=== PATIENT | female | born 1970 | race Caucasian/White ===

== ENCOUNTER → 2024-04-27 | Outpatient (CLI) | payer MEDICAID, SELFPAY ==
--- NOTE | 2024-04-27 11:00 | XR_ITS ---
Examination: Breast ultrasound, unilateral, left complete Date and time of exam: April 27, 2020 4:11 AM INDICATIONS: Mammogram October 27, 2023 6 mm circumscribed mass upper outer left breast, left breast sonogram October 27, 2023 3:00 cyst 7:00 cyst Technique: Real-time rhodes scale ultrasonographic imaging performed left breast including all 4 quadrants as well as nipple retroareolar and axillary region. Findings: 2:00 cyst 4 x 5 mm 7:00 cyst 5 x 5 mm Retroareolar cysts 3 x 2 mm, 4 x 4 millimeter No solid nodules IMPRESSION: BI-RADS Category 2: Benign findings
--- NOTE | 2024-04-27 11:30 | XR_ITS ---
Examination: Diagnostic digital mammography, unilateral, left Computer aided detection 3-D breast Tomosynthesis, unilateral Date and time of exam: April 27, 2024 1114 hours INDICATIONS: Mammogram October 17, 2023 4 mm oval mass upper outer left breast Technique: Nonmagnified MLO, CC views of the left breast have been obtained, reconstructed from 3-D Tomosynthesis images. R2 computer aided detection program utilized for evaluation of suspicious masses and/or abnormal calcifications. 3-D Tomosynthesis images obtained. Findings: Scattered areas of fibroglandular density Benign calcifications Stable 4 mm circumscribed nodule outer left breast Impression: BI-RADS category 2: Benign findings Return to yearly follow-up mammography
== END | disposition home or self-care (01) ==
LOC: CDIM 10:45
PROVIDERS: PCP Family Medicine; Referring Provider Specialist; Visit Provider Specialist
DX: R92.322 Mammographic fibroglandular density, left breast (principal); R92.1 Mammographic calcification found on diagnostic imaging of breast
CPT/HCPCS: 76641; 77061; 77065; G0279

== ENCOUNTER → 2024-09-12 | Outpatient (CLI) | payer MEDICAID, SELFPAY ==
--- NOTE | 2024-09-12 09:00 | XR_ITS ---
Examination: Nuclear medicine 3 phase bone scan knees Exam date and time: September 12, 2024 0845 hours Comparison 02/06/2021 TECHNIQUE AND FINDINGS: Intravenous administration 23.5 mCi technetium 99m MDP, without flow blood pool and static images obtained INDICATIONS: Left knee replacement 2016 bilateral knee pain beginning 2018 FINDINGS: No increased isotope accumulation on the flow or blood flow images Increased isotope accumulation about the right patella No findings diagnostic for loosening of the prosthetic components left knee IMPRESSION: No findings diagnostic for loosening of the prosthetic components left knee
== END | disposition home or self-care (01) ==
LOC: SNUC 08:47
PROVIDERS: Referring Provider Orthopaedic Surgery; Visit Provider Orthopaedic Surgery
DX: M17.11 Unilateral primary osteoarthritis, right knee (principal); Z96.652 Presence of left artificial knee joint
CPT/HCPCS: 78315; A9503

== ENCOUNTER → 2024-10-17 | Outpatient (CLI) | payer MEDICAID, SELFPAY ==
--- NOTE | 2024-10-17 08:00 | XR_ITS ---
Examination: Screening digital mammography, bilateral Computer aided detection 3-D breast Tomosynthesis, bilateral Date and time of exam: October 17, 2024 0748 hours Compared to mammograms dating to October 14, 2022 Indication: Screening Technique: Nonmagnified MLO, CC views of the breasts to been obtained, reconstructed from 3-D Tomosynthesis images. R2 computer aided detection program utilized for evaluation of suspicious masses and/or abnormal calcifications. 3-D Tomosynthesis images obtained. Findings: Scattered areas of fibroglandular density. Benign calcifications No suspicious masses Impression: BI-RADS category II: Benign Findings. Recommend 1 year follow-up mammogram.
== END | disposition home or self-care (01) ==
LOC: CDIM 07:39
PROVIDERS: PCP Nurse Practitioner Family; Referring Provider Specialist; Visit Provider Specialist
DX: Z12.31 Encounter for screening mammogram for malignant neoplasm of breast (principal); R92.323 Mammographic fibroglandular density, bilateral breasts; R92.1 Mammographic calcification found on diagnostic imaging of breast
CPT/HCPCS: 77063; 77067